=== PATIENT | male | born 1965 | race Caucasian/White ===

== ENCOUNTER 2023-01-02 13:24 | Outpatient (CLI) | payer BC, SELFPAY | END 2023-01-02 13:25 | disposition home or self-care (01) | LOC: ANHBWCAUD 13:24 | PROVIDERS: PCP Family Medicine; Visit Provider Otolaryngology | DX: H93.19 Tinnitus, unspecified ear (principal); G43.809 Other migraine, not intractable, without status migrainosus; H81.10 Benign paroxysmal vertigo, unspecified ear; H69.82 Other specified disorders of Eustachian tube, left ear | CPT/HCPCS: 92557; 92567 ==